=== PATIENT | male | born 1985 | race Caucasian/White ===

== ENCOUNTER 2019-05-20 21:32 | Inpatient (IN) | payer SELFPAY | END 2019-05-26 19:15 | disposition home or self-care (01) | LOC: JERBED 05-21 03:27 → JER 21:32 → J5S 05-21 18:09 ==

== ENCOUNTER 2019-09-07 17:38 | Emergency (ER) | payer SELFPAY ==
[2019-09-07] MEDS ORDERED: ONDANSETRON 4 MG/2 ML VIAL IVPUSH ONE (17:50)
[2019-09-07] MEDS ORDERED: SODIUM CHLORIDE 1,000 ML IV STA (17:50)
[2019-09-07] MEDS ORDERED: morphine CARPU-JECT 4 MG/1 ML DISP.SYRIN IVPUSH ONE (17:50)
--- NOTE | 2019-09-07 17:50 | PDOC ---
Rapid Medical Evaluation Time Seen by Provider: 09/07/19 17:48 Medical Evaluation: Allergies Allergy/AdvReac Type Severity Reaction Status Date / Time No Known Allergies Allergy Verified 05/20/19 21:52 09/07/19 17:48 CC: diffuse upper abd pain x1 week PE: Abd SNTND. Orders: abd w/u The patient will proceed to the ER for continued Evaluation. Discharge Disposition - Diagnosis Abdominal pain - Referrals - Patient Instructions - Post Discharge Activity
[2019-09-07 17:51] VITALS: BMI 18.6
[2019-09-07] MEDS ORDERED: ONDANSETRON 4 MG/2 ML VIAL ONE (18:41)
[2019-09-07] MEDS ORDERED: MORPHINE SULFATE 2 MG/ML VIAL ONE (18:41)
[2019-09-07 18:47] LABS: BASO % 0.9 % (0-2.0); EOS % 1.9 % (0-4.5); HEMATOCRIT 42.1 % (35.4-49); HEMOGLOBIN 14.1 GM/dL (11.7-16.9); LYMPH % 21.9 % (8-40); MCH 26.7 pg (25.7-33.7); MCHC 33.4 g/dl (32.0-35.9); MEAN PLT VOLUME 9.2 fl (7.5-11.1); MONO % 7.6 % (3.8-10.2); NEUT % 67.7 % (42.8-82.8); PLATELET COUNT 307 K/MM3 (134-434); RBC 5.26 M/mm3 (4.00-5.60); RDW 15.8 % (11.9-15.9)
[2019-09-07 19:26] LABS: ALBUMIN 4.2 g/dl (3.4-5.0); BILIRUBIN,TOTAL 0.8 mg/dL (0.2-1); BLOOD UREA NITROGEN 10.3 mg/dL (7-18); CALCIUM 9.4 mg/dL (8.5-10.1); CREATININE 1.2 mg/dL (0.55-1.3); POTASSIUM 3.6 mmol/L (3.5-5.1); TOT PROT 6.9 g/dl (6.4-8.2)
--- NOTE | 2019-09-07 19:36 | PDOC ---
History of Present Illness - General Chief Complaint: Pain Stated Complaint: ABD PAIN Time Seen by Provider: 09/07/19 17:48 History Source: Patient - History of Present Illness Initial Comments: 09/07/19 19:38 33 YEAR OLD MALE with IDDM c/o vomiting, upper abdominal pain ( on and off for months). denies fever/ chills. reports that blood sugar has been " okay" at home. seen in this ER for similar complaint in may 2019. admitted and GI work up negative. s/p endoscopy in May by Dr. Clemons. patient reports that he has not followed up with GI due to insurance reasons. patient reports that his insurance has been re instated and he plans of following up with his PCP PMHX: IDDM 09/07/19 19:40 09/07/19 20:55 Past History - Past Medical History Allergies/Adverse Reactions: Allergies Allergy/AdvReac Type Severity Reaction Status Date / Time No Known Allergies Allergy Verified 09/07/19 17:51 Home Medications: Ambulatory Orders Insulin NPH Hum/Reg Insulin Hm [Novolin 70-30 100 Unit/ml Vial] 15 unit SQ BID 05/21/19 Ferrous Sulfate [Feosol] 325 mg PO DAILY #30 ud 05/26/19 Insulin NPH Hum/Reg Insulin Hm [Novolin 70-30 Flexpen] 15 unit SQ BID #4 insuln.pen 05/26/19 Miscellaneous Medical Supply [Glucometer Device] 1 each SQ ASDIR #1 kit Miscellaneous Medical Supply [Glucometer Test Strips #100] 1 each SQ ASDIR #1 box 05/26/19 [place], Safety [Easy Touch Fliplock Needle] 1 each MC BID #100 dis.needle 05/26 Pantoprazole Sodium [Protonix -] 40 mg PO DAILY #90 tablet.ec 05/26/19 Pantoprazole Sodium [Protonix] 40 mg PO DAILY #20 tablet. 09/07/19 Anemia: Yes Asthma: No Cancer: No Cardiac Disorders: No CVA: No COPD: No CHF: No Dementia: No Diabetes: Yes GI Disorders: No Disorders: No HTN: No Hypercholesterolemia: No Liver Disease: No Seizures: No Thyroid Disease: No - Surgical History Abdominal Surgery: No Appendectomy: No Cardiac Surgery: No Cholecystectomy: No Lung Surgery: No Neurologic Surgery: No Orthopedic Surgery: No - Psycho Social/Smoking Cessation Hx Smoking History: Current every day smoker Have you smoked in the past 12 months: Yes Number of Cigarettes Smoked Daily: 20 Information on smoking cessation initiated: No Hx Alcohol Use: No Drug/Substance Use Hx: No Hx Substance Use Treatment: No Review of Systems - Review of Systems Able to Perform ROS?: Yes Is the patient limited [place]ian proficient: No Constitutional: No: Symptoms Reported, See HPI, Chills, Diaphoresis, Fever, Loss of Appetite, Malaise, Night Sweats, Weakness, Weight Stable, Unintentional Wgt. Loss, Unexplained wgt Loss, Other Cardiac (ROS): No: Symptoms Reported, See HPI, Chest Pain, Edema, Irregular Heart Rate, Lightheadedness, Palpitations, Syncope, Chest Tightness, Other ABD/GI: Yes: Nausea, Vomiting, Abdominal cramping. No: Symptoms Reported, See HPI, Abdominal Distended, Abd. Pain w/ defecation, Blood Streaked Bowels, Constipated, Diarrhea, Difficulty Swallowing, Poor Appetite, Poor Fluid Intake, Rectal Bleeding, Indigestion, Tarry Stools, Other : No: Symptoms Reported, See HPI, Burning, Dysuria, Discharge, Frequency, Flank Pain, Hematuria, Incontinence, Pain, Urgency, Testicular Mass, Testicular Swelling, Lesions, Testicular Pain, Other Musculoskeletal: No: Symptoms Reported, See HPI, Back Pain, Gout, Joint Pain, Joint Swelling, Muscle Pain, Muscle Weakness, Neck Pain, Joint Stiffness, Other *Physical Exam - Vital Signs Last Vital Signs Temp Pulse Resp BP Pulse Ox 98.2 F 69 18 121/64 100 09/07/19 17:46 09/07/19 17:46 09/07/19 17:46 09/07/19 17:46 09/07/19 17:46 - Physical Exam General Appearance: Yes: Appropriately Dressed Respiratory/Chest: positive: Lungs Clear, Normal Breath Sounds Cardiovascular: positive: Regular Rhythm, Regular Rate Gastrointestinal/Abdominal: positive: Normal Bowel Sounds, Tender (RUQ), Soft Extremity: positive: Normal Capillary Refill Integumentary: positive: Normal Color, Dry, Warm Neurologic: positive: Fully Oriented, Alert ED Treatment Course - LABORATORY CBC & Chemistry Diagram: 09/07/19 18:22 09/07/19 18:22 - ADDITIONAL ORDERS Additional order review: Laboratory Results 09/07/19 18:22 Sodium 139 Potassium 3.6 Chloride 103 Carbon Dioxide 31 Anion Gap 5 L BUN 10.3 Creatinine 1.2 Est GFR (CKD-EPI)AfAm 91.53 Est GFR (CKD-EPI)NonAf 78.97 Random Glucose 156 H Calcium 9.4 Total Bilirubin 0.8 AST 11 L ALT 16 Alkaline Phosphatase 72 Total Protein 6.9 Albumin 4.2 Lipase 67 L 09/07/19 18:22 RBC 5.26 MCV 80.0 MCHC 33.4 RDW 15.8 D MPV 9.2 Neutrophils % 67.7 Lymphocytes % 21.9 D Monocytes % 7.6 Eosinophils % 1.9 Basophils % 0.9 - Medications Given in the ED: ED Medications Discontinued Medications Generic Name Dose Route Start Last Admin Trade Name Freq PRN Reason Stop Dose Admin Sodium Chloride 1,000 mls @ 1,000 mls/hr 09/07/19 17:50 09/07/19 18:58 Normal Saline - IV 09/07/19 18:49 1,000 mls/hr ASDIR STA Administration Morphine Sulfate 4 mg 09/07/19 17:50 09/07/19 18:57 Morphine Injection - IVPUSH 09/07/19 17:51 4 mg ONCE ONE Administration Ondansetron HCl 4 mg 09/07/19 17:50 09/07/19 18:58 Zofran Injection IVPUSH 09/07/19 17:51 4 mg ONCE ONE Administration ED Progress Note - Progress Note Progress Note: 09/07/19 20:56 A: abdominal pAIn nause and vomiting likley gastroparesis P: cbc cmp lipase ua urine tox antiemetics PPI carafate Medical Decision Making - Medical Decision Making 09/07/19 21:44 urine tox opiates s/p morphine dose her ein the ED> patient denies any drug abuse 09/07/19 21:44 patient currently PO challenging. will d/ c home to followup with GI Discharge - Discharge Information Problems reviewed: Yes Clinical Impression/Diagnosis: Gastroparesis due to secondary diabetes, Nausea and vomiting in adult Abdominal pain Qualifiers: Abdominal location: upper abdomen, unspecified Qualified Code(s): R10.10 - Upper abdominal pain, unspecified - Additional Discharge Information Prescriptions: Pantoprazole Sodium [Protonix] 40 mg PO DAILY #20 tablet.dr - Follow up/Referral Referrals: Rahul Clemons DO [Staff Physician] - Call tomorrow Lázaro,Gilbert, MD [Staff Physician] - Call tomorrow - Patient Discharge Instructions Patient Printed Discharge Instructions: DI for Abdominal Pain-Adult Additional Instructions: drink plenty of fluid take protonix as prescribed. stop taking omeprazole follow up with gastroenterology as soon as possible. take reglan as prescribed for nausea Additional Instructions: * Please call your personal physician to report your Emergency Department visit and to report your progress, if any. * If there is no improvement in symptoms in 2 days call your physician. * Return to the Emergency Department for any worsening symptoms. - Post Discharge Activity
[2019-09-07] MEDS ORDERED: PANTOPRAZOLE SODIUM 40 MG VIAL IVPB ONE (19:43)
[2019-09-07] MEDS ORDERED: SUCRALFATE 1 GM TABLET (FP) PO ONE (19:45)
[2019-09-07] MEDS ORDERED: PANTOPRAZOLE SODIUM 40 MG/100 ML BAG IVPB ONE (19:55)
[2019-09-07] MEDS ORDERED: SUCRALFATE 1 GM TABLET (FP) ONE (19:56)
[2019-09-07] MEDS ORDERED: METOCLOPRAMIDE HCL INJECTION 10 MG/2 ML VIAL IVPB ONE (20:41)
[2019-09-07] MEDS ORDERED: METOCLOPRAMIDE HCL INJECTION 10 MG/2 ML VIAL ONE (20:57)
[2019-09-07 21:22] LABS: PH,URINE 8.5 (5.0-8.0); URINE APPEARANCE CLOUDY; URINE BILIRUBIN NEGATIVE (NEGATIVE); URINE COLOR YELLOW; URINE GLUCOSE (UA) TRACE (NEGATIVE); URINE KETONE 1+ (NEGATIVE); URINE LEUK ESTERASE NEGATIVE (NEGATIVE); URINE NITRITE NEGATIVE (NEGATIVE); URINE PROTEIN NEGATIVE (NEGATIVE)
[2019-09-07 21:27] LABS: COCAINE, UR NEGATIVE ng/ml (CUTOFF=300); METHADONE, UR NEGATIVE ng/ml (CUTOFF=300); PHENCYCLIDINE,URINE NEGATIVE ng/ml (CUTOFF=25); URINE AMPHETAMINES NEGATIVE ng/ml (CUTOFF=500); URINE BARBITURATES NEGATIVE ng/ml (CUTOFF=200); URINE BENZODIAZEPINES NEGATIVE ng/ml (CUTOFF=200)
[2019-09-07 21:30] LABS: OPIATES, URI POSITIVE ng/ml (CUTOFF=300)
[2019-09-07 22:32] VITALS: BP 108/72; PULSE 72; TEMP 98.4
--- NOTE | 2019-09-08 10:30 | EKG ---
Test Reason : Blood Pressure : / mmHG Vent. Rate : 071 BPM Atrial Rate : 071 BPM P-R Int : 138 ms QRS Dur : 090 ms QT Int : 418 ms P-R-T Axes : 072 089 063 degrees QTc Int : 454 ms NORMAL SINUS RHYTHM WITH SINUS ARRHYTHMIA POSSIBLE LEFT ATRIAL ENLARGEMENT BORDERLINE ECG WHEN COMPARED WITH ECG OF 21-MAY-2019 09:02, NO SIGNIFICANT CHANGE WAS FOUND Confirmed by ABDELRAHMAN LAZCANO, EDILIA ([id number]) on 09/08/2019 10:29:50 AM Referred By: Confirmed By:EDILIA QUICK MD
== END 2019-09-07 22:31 | disposition home or self-care (01) ==
LOC: JER 17:38
PROC: 3E033NZ Introduction of Analgesics, Hypnotics, Sedatives into Peripheral Vein, Percutaneous Approach (ICD-10-PCS; principal; 2019-09-07)
PROC: 3E033GC Introduction of Other Therapeutic Substance into Peripheral Vein, Percutaneous Approach (ICD-10-PCS; 2019-09-07)
PROC: 3E033GC Introduction of Other Therapeutic Substance into Peripheral Vein, Percutaneous Approach (ICD-10-PCS; 2019-09-07)
PROC: 3E033GC Introduction of Other Therapeutic Substance into Peripheral Vein, Percutaneous Approach (ICD-10-PCS; 2019-09-07)
DX: E10.43 Type 1 diabetes mellitus with diabetic autonomic (poly)neuropathy (principal); K31.84 Gastroparesis; Z79.4 Long term (current) use of insulin; D64.9 Anemia, unspecified; F17.210 Nicotine dependence, cigarettes, uncomplicated
CPT/HCPCS: 36415; 76705-TC; 80053; 80307; 81003; 83690; 85025; 93005; 93010; 99285-25; J7030

== ENCOUNTER 2020-06-12 21:15 | Emergency (ER) | payer OTHER ==
--- NOTE | 2020-06-12 21:29 | PDOC ---
Rapid Medical Evaluation Time Seen by Provider: 06/12/20 21:27 Medical Evaluation: Allergies Allergy/AdvReac Type Severity Reaction Status Date / Time No Known Allergies Allergy Verified 09/07/19 17:51 06/12/20 21:28 Pt presents for evaluation of a bump on his tailbone starting two days ago. Exam: deferred to provider Orders: nothing Pt to proceed to the ER for further evaluation Discharge Disposition - Diagnosis Coccyx pain - Referrals - Patient Instructions - Post Discharge Activity
[2020-06-12 21:30] VITALS: BP 112/70; PULSE 93; TEMP 97.6; BMI 18.6
[2020-06-12] MEDS ORDERED: CEPHALEXIN MONOHYDRATE 500 MG CAPSULE (UD) PO ONE (22:07)
[2020-06-12] MEDS ORDERED: SULFAMETHOXAZOLE/TRIMETHOPRIM 800MG/160MG D.S. TABLET PO ONE (22:07)
--- NOTE | 2020-06-12 22:10 | PDOC ---
History of Present Illness - General Chief Complaint: Pain Stated Complaint: PAIN Time Seen by Provider: 06/12/20 21:27 - History of Present Illness Initial Comments: 06/12/20 22:08 34-year-old insulin-dependent diabetic presents for evaluation of a painful area on his buttocks over the last 2 days without systemic symptoms. Past History - Medical History Allergies/Adverse Reactions: Allergies Allergy/AdvReac Type Severity Reaction Status Date / Time No Known Allergies Allergy Verified 09/07/19 17:51 Home Medications: Ambulatory Orders Insulin NPH Hum/Reg Insulin Hm [Novolin 70-30 100 Unit/ml Vial] 15 unit SQ BID 05/21/19 Ferrous Sulfate [Feosol] 325 mg PO DAILY #30 ud 05/26/19 Insulin NPH Hum/Reg Insulin Hm [Novolin 70-30 Flexpen] 15 unit SQ BID #4 insuln.pen 05/26/19 Miscellaneous Medical Supply [Glucometer Device] 1 each SQ ASDIR #1 kit 05/26/19 Miscellaneous Medical Supply [Glucometer Test Strips #100] 1 each SQ ASDIR #1 box 05/26/19 [place], Safety [Easy Touch Fliplock Needle] 1 each MC BID #100 dis.needle 05/26/19 Pantoprazole Sodium [Protonix -] 40 mg PO DAILY #90 tablet.ec 05/26/19 Pantoprazole Sodium [Protonix] 40 mg PO DAILY #20 tablet.dr 09/07/19 Cephalexin [Keflex] 500 mg PO QID #40 capsule 06/12/20 Sulfamethoxazole/Trimethoprim [Bactrim Ds -] 1 tab PO BID #14 tablet 06/12/20 Anemia: Yes Asthma: No Cancer: No Cardiac Disorders: No CVA: No COPD: No CHF: No Dementia: No Diabetes: Yes GI Disorders: No Disorders: No HTN: No Hypercholesterolemia: No Liver Disease: No Seizures: No Thyroid Disease: No - Surgical History Abdominal Surgery: No Appendectomy: No Cardiac Surgery: No Cholecystectomy: No Lung Surgery: No Neurologic Surgery: No Orthopedic Surgery: No - Psycho-Social/Smoking History Smoking History: Current every day smoker Have you smoked in the past 12 months: Yes Number of Cigarettes Smoked Daily: 20 Information on smoking cessation initiated: No - Substance Abuse Hx (Audit-C & DAST Scrn) How often the patient has a drink containing alcohol: Never Score: In Men: 4 or > Positive; In Women: 3 or > Positive: 0 Screen Result (Pos requires Nsg. Audit-10AR): Negative In the last yr the pt used illegal drug/Rx for NonMed reason: Yes Score: Yes response is considered Positive: 1 Screen Result (Positive result requires Nsg. DAST-10): Positive Review of Systems - Review of Systems Constitutional: No: Fever *Physical Exam - Vital Signs Last Vital Signs Temp Pulse Resp BP Pulse Ox 97.6 F 93 H 19 112/70 97 06/12/20 21:27 06/12/20 21:27 06/12/20 21:27 06/12/20 21:27 06/12/20 21:27 - Physical Exam 06/12/20 22:08 There is about a 3 cm circumferential warm firm indurated erythemic area on the superior medial aspect of the left buttocks just lateral to midline there is a firmness without fluctuance no drainage Medical Decision Making - Medical Decision Making 06/12/20 22:08 Discussed the use of warm compresses to soften up the abscess and follow-up with general surgery p.o. antibiotics started in the emergency room along with the initial dose of pain medication. He can take Tylenol and Motrin at home. Return to the emergency room for worsening symptoms and follow-up with general surgery for formal I&D if needed patient is a diabetic. I have reviewed the pathophysiology with the patient. They are in agreement with the treatment plan all questions were answered to their satisfaction. Understanding for follow-up without fail was also conveyed to the patient. Again they are in agreement. Discharge - Discharge Information Problems reviewed: Yes Clinical Impression/Diagnosis: Coccyx pain, Abscess Condition: Stable Disposition: HOME - Admission No - Additional Discharge Information Prescriptions: Sulfamethoxazole/Trimethoprim [Bactrim Ds -] 1 tab PO BID #14 tablet Cephalexin [Keflex] 500 mg PO QID #40 capsule - Follow up/Referral Referrals: Nolan Welch MD [Staff Physician] - - Patient Discharge Instructions Additional Instructions: You were given initial dose of antibiotics in the emergency room please start the antibiotics and finish the entire course as directed. Warm compresses as discussed multiple times a day. Without fail follow-up with general surgery in 1 to 2 days for further evaluation and treatment options. Return to the emergency room for further issues. - Post Discharge Activity
[2020-06-12] MEDS ORDERED: SULFAMETHOXAZOLE/TRIMETHOPRIM 800MG/160MG D.S. TABLET ONE (22:12)
[2020-06-12] MEDS ORDERED: CEPHALEXIN MONOHYDRATE 500 MG CAPSULE (UD) ONE (22:12)
== END 2020-06-12 22:20 | disposition home or self-care (01) ==
LOC: JERFT 21:15
DX: M53.3 Sacrococcygeal disorders, not elsewhere classified (principal)
CPT/HCPCS: 99283-25